=== PATIENT | female | born 1985 | race Caucasian/White ===

== ENCOUNTER → 2017-07-18 15:39 | Outpatient (CLI) | payer OTHER, SELFPAY ==
--- NOTE | 2017-07-18 10:25 | TONS_PTH ---
PATIENT: KLAUS TREJO [facility] U#:[id number] AGE/SX: 39/F ROOM: RE07/18/[address]: Dr. Erik Dale MD : 1985 BED: DIS: SPEC #: [id number] RECD: 07/18/17 15:16 STATUS: GERRY MARGO #: [id number] EARNESTINE: 07/18/17 10:[address]: Erik Dale DEPT: SURGICAL PATHOLOGY RECD BY: Hi Alvarado ENTERED: 07/19/17 09:26 SP TYPE: TONSILS OTHR DR: MARTHA Tissues: Tonsil, NOS Procedures: Surgery Specimen Level III HEADER OPERATION: Tonsillectomy PRE-OP DIAGNOSIS: Acute recurrent streptococcal tonsillitis TISSUE SUBMITTED: Tonsils (right pinned) MICROSCOPIC DIAGNOSIS Right and left tonsils, bilateral tonsillectomies: Benign lymphoid follicular hyperplasia. AM:josemanuel 07/20/17 MICROSCOPIC DESCRIPTION Slides are reviewed. GROSS DESCRIPTION Received is one container labeled with the patient's name and designated tonsils - pin on right are two tonsils that in aggregate weigh 4.9 gm. The right tonsil has a pin on it and measures 3 x 1.5 x 0.8 cm. The left tonsil measures 2.5 x 1.5 x 0.7 cm. Both tonsils are similar in appearance. The external surfaces are pink-martines, smooth, glistening and somewhat lobulated. Focally they are hemorrhagic, granular and bear cautery artifact. Serial cross sections through the tonsils reveal normal tonsillar architecture. Sections are submitted in two cassettes as follows: 1 - right tonsil, 2 - left tonsil. / AM:josemanuel 07/19/17 TC:5 [facility]: [id number] [id number]
== END ==
PROVIDERS: Visit Provider Otolaryngology Otolaryngology/Facial Plastic Surgery
DX: J03.01 Acute recurrent streptococcal tonsillitis (principal)
CPT/HCPCS: 88304